=== PATIENT | female | born 2000 | race Caucasian/White ===

== ENCOUNTER 2019-08-08 03:24 | Inpatient (IN) ==
[2019-08-08] MEDS ORDERED: AMPICILLIN 2 GM in NS 100 ML IV ONE (03:50)
[2019-08-08] MEDS ORDERED: KEFZOL 2 GM/D5W 2 GM/50 ML IVPB IV PRN (03:50)
[2019-08-08] MEDS ORDERED: TYLENOL PO PRN (03:50)
[2019-08-08] MEDS ORDERED: STADOL IV PRN (03:50)
[2019-08-08] MEDS ORDERED: PEPCID PO PRN ×2 (03:50)
[2019-08-08] MEDS ORDERED: REGLAN PO PRN (03:50)
[2019-08-08] MEDS ORDERED: ZOFRAN IV PRN (03:50)
[2019-08-08] MEDS ORDERED: PEPCID IV PRN (03:50)
[2019-08-08] MEDS ORDERED: LR 1,000 ML ONE (03:51)
[2019-08-08] MEDS ORDERED: PITOCIN 30 UNITS/NS 30 UNIT/500 ML IV.SOLN ONE (03:51)
[2019-08-08] MEDS ORDERED: XYLOCAINE-MPF 1% INJ PRN ×2 (03:52→05:00)
[2019-08-08] MEDS ORDERED: MINERAL OIL TOP PRN (03:52)
[2019-08-08 04:00] LABS: URINE SOURCE VOIDED
[2019-08-08] MEDS: LR 1,000 ML IV SCH ×2 (04:00→08:05)
[2019-08-08] MEDS ORDERED: PITOCIN 30 UNITS/NS 30 UNIT/500 ML IV.SOLN IV SCH ×2 (04:00→05:00)
[2019-08-08] MEDS ORDERED: SODIUM CHLORIDE 0.9% INJ SCH (04:00)
[2019-08-08 04:06] LABS: BILIRUBIN URINE NEGATIVE (NEGATIVE); BLOOD URINE MODERATE (NEGATIVE); COLOR ORANGE; GLUCOSE URINE 200 mg/dL (NEGATIVE); KETONE URINE NEGATIVE (NEGATIVE); LEUKOCYTES URINE TRACE (NEGATIVE); NITRITE URINE NEGATIVE (NEGATIVE); PROTEIN URINE 100 mg/dL (NEGATIVE); SP GRAVITY URINE 1.006; TURBIDITY URINE TURBID (CLEAR); UROBILINOGEN URINE NORMAL (NORMAL)
[2019-08-08 04:15] LABS: BASO# 0.01 X1000 (0.0-0.2); BASO% 0.1 % (0.0-0.8); EOS# 0.02 X1000 (0.0-0.7); EOS% 0.3 % (0.0-10.0); HEMATOCRIT 31.7 % (37.0-47.0); HEMOGLOBIN 9.9 g/dL (12.0-16.0); IMM GRAN# 0.02 X1000 (0.0-0.04); IMM GRAN% 0.3 % (0.0-0.5); LYMPH# 1.77 X1000 (1.2-3.4); LYMPH% 25.1 % (20.5-51.1); MCH 26.2 PG (27-31); MCHC 31.2 g/dL (33-37); MCV 83.9 FL (81-99); MONO# 0.51 X1000 (0.11-0.59); MONO% 7.2 % (1.7-9.3); MPV 11.3 FL (7.4-10.4); NEUT# 4.71 X1000 (1.4-6.5); PLT 180 X1000 (130-400); RBC 3.78 XMIL (4.2-5.4); RDW 14.9 % (11.5-14.5); WBC 7.04 X1000 (4.8-10.8)
[2019-08-08 04:15] LABS: UR AMPHETAMINES QUAL NONE DETECTED (NONE DETECT); UR BARBITUATES QUAL NONE DETECTED (NONE DETECT); UR BENZODIAZEPIN QUAL NONE DETECTED (NONE DETECT); UR CANNABINOIDS QUAL NONE DETECTED (NONE DETECT); UR COCAINE QUAL NONE DETECTED (NONE DETECT); UR METHADONE QUAL NONE DETECTED (NONE DETECT); UR OPIATES QUAL NONE DETECTED (NONE DETECT); UR OXYCODONE QUAL NONE DETECTED (NONE DETECT); UR PCP QUAL NONE DETECTED (NONE DETECT)
[2019-08-08] MEDS ORDERED: CYTOTEC ONE (04:51)
[2019-08-08] MEDS ORDERED: PITOCIN IM PRN (05:00)
[2019-08-08] MEDS ORDERED: HYDROXYZINE IM PRN (05:00)
[2019-08-08] MEDS ORDERED: PITOCIN 20 UNITS/NS 20 UNITS/1,000 ML IV.SOLN IV SCH (05:00)
[2019-08-08] MEDS ORDERED: PERI MEDS (DERMOPLAST/NUPERCAINAL/TUCKS) MISC PRN (05:00)
[2019-08-08] MEDS ORDERED: ATARAX PO PRN (05:00)
[2019-08-08] MEDS ORDERED: CYTOTEC PO PRN (05:00)
[2019-08-08] MEDS ORDERED: BENADRYL IV PRN (05:00)
[2019-08-08] MEDS ORDERED: M-M-R II VACCINE SUBQ ONE (05:00)
[2019-08-08] MEDS ORDERED: AMBIEN PO PRN (05:00)
[2019-08-08] MEDS ORDERED: BOOSTRIX VACCINE IM ONE (05:00)
[2019-08-08] MEDS ORDERED: MINERAL OIL PO PRN (05:00)
[2019-08-08] MEDS ORDERED: BENADRYL PO PRN (05:00)
[2019-08-08 05:05] LABS: RPR NON-REACTIVE (NONREACTIVE)
[2019-08-08 05:06] LABS: RAPID HIV PRESUMPTIVE NEGATIVE
[2019-08-08 05:11] LABS: RUBELLA SCREEN NON IMMUNE (IMMUNE)
--- NOTE | 2019-08-08 05:17 | HISTORY AND PHYSICAL ---
HISTORY OF PRESENT ILLNESS: The patient is a 19-year-old G2, P1 at approximately 31 weeks based on fundal height in active labor. The patient presents with no care in active labor. She reports rupture of membranes and positive contractions. Good movements. Denies vaginal bleeding. PAST MEDICAL HISTORY: Noncontributory. PAST SURGICAL HISTORY: None. OBSTETRICAL HISTORY: G2, P1, one prior vaginal delivery at approximately 37 weeks. Baby measuring approximately 5 pounds with possible delivery. DEPARTURE CLERK HISTORY: Denies STD exposure. FAMILY HISTORY: Noncontributory. SOCIAL HISTORY: Denies tobacco, alcohol, or drug use. MEDICATIONS: None. ALLERGIES: No known drug allergies. PHYSICAL EXAMINATION: VITAL SIGNS: Temperature 97.8 degrees Fahrenheit, pulse rate 116, respiration rate 18, blood pressure 144/69. 02 sats 99% on room air, weight 120 pounds, and height 5 feet 2 inches tall. Body mass index 21.9 kg per/meter sq. GENERAL: No acute distress. Alert, awake, and oriented x3. CARDIOVASCULAR: Regular rate and rhythm. Positive S1 and S2. RESPIRATORY: Respirations clear to auscultation bilaterally. Negative rhonchi, rales, or wheezing. ABDOMEN: Soft. Nontender to palpation. Gravid. Fundal height 31 cm. EXTREMITIES: No calf tenderness. Negative edema. Vaginal exam 8 to 9 cm dilated, 100% effaced. Grossly ruptured. LABORATORY: WBC 7.04, hemoglobin 9.9, hematocrit 31.7, and platelets 180,000. Urine drug screen negative. ASSESSMENT: Ms. Whyte is a 19-year-old G2, P1 at approximately 31 weeks based on fundal height in active labor and no care. PLAN: 1. Admit to Labor and Delivery. 2. GBS unknown. 3. Ampicillin started for prophylaxis. 4. Continuous monitoring. 5. Storage Battery Charger staff made aware of possible delivery of 31 week. 6. Estimated weight 4 pounds. 7. The patient counseled on risks, benefits, and alternatives. Risks not limited to infection, bleeding, vaginal laceration, and emergency delivery. The patient understands the risks and agrees to the procedure. 8. Anticipate spontaneous vaginal delivery. [facility]
[2019-08-08] MEDS ORDERED: METHERGINE IM ONE (05:50)
[2019-08-08] MEDS ORDERED: METHERGINE ONE (05:50)
--- NOTE | 2019-08-08 06:04 | PROVIDER PROGRESS NOTE ---
- Subjective called for excessive bleeding, patient delivered about an hour ago Physical Exam Objective Vital Signs - 8 hr 08/08/19 03:18 Temperature 97.8 F Pulse Rate 116 H Respiratory Rate 18 Blood Pressure 144/69 O2 Sat by Pulse Oximetry 99 - Constitutional General Appearance: alert, mild distress - EYES Eyes: PERRL/EOMI - HEAD, EARS, NOSE, MOUTH & THROAT HENMT: normocephalic/atraumatic, moist mucous membranes - RESPIRATORY Respiratory: no respiratory distress - CHEST (BREASTS) Chest/Breast: deferred - GASTROINTESTINAL (ABDOMEN) Abdominal Exam: non tender, other (uterus firm, no evident clots vaginally) - NEUROLOGIC Neurologic: grossly normal - PSYCHIATRIC Psych/Mental Status: normal mood/affect, oriented x 3, anxious, tearful Active Medications Generic Name Dose Route Start Last Admin Trade Name Freq PRN Reason Stop Dose Admin Acetaminophen 650 mg 08/08/19 03:50 Tylenol PO Q4-6H PRN PRN Headache Benzocaine 1 each 08/08/19 05:00 08/08/19 05:54 Park Meds (Dermoplast/Nupercainal/Tucks) MISC 1 applic 3-4XDAY PRN PRN Administration episiotomy/hemorrhoids Butorphanol Tartrate 2 mg 08/08/19 03:50 08/08/19 05:08 Stadol IV 2 mg PRN PRN Administration Pain Diphenhydramine HCl 12.5 mg 08/08/19 05:00 Benadryl IV Q4H PRN PRN Itching Diphenhydramine HCl 25 mg 08/08/19 05:00 Benadryl PO Q4H PRN PRN Itching Famotidine 40 mg 08/08/19 03:50 Pepcid PO Q12H PRN PRN GI upset or indigestion Famotidine 20 mg 08/08/19 03:50 Pepcid IV Q12H PRN PRN GI upset or indigestion Famotidine 20 mg 08/08/19 03:50 Pepcid PO ONCE PRN PRN section Ferrous Sulfate 325 mg 08/08/19 09:00 Ferrous Sulfate PO DAILY PAIGE Hydroxyzine HCl 50 mg 08/08/19 05:00 Hydroxyzine IM Q3-4H PRN PRN Nausea Hydroxyzine HCl 50 mg 08/08/19 05:00 Atarax PO Q3-4H PRN PRN Nausea Lactated Ringer's 1,000 mls @ 0 mls/hr 08/08/19 04:00 08/08/19 04:00 Lr IV 125 mls/hr .Q0M PAIGE Administration As Directed Oxytocin/Sodium Chloride 30 unit in 500 mls @ 0 mls/hr 08/08/19 04:00 Pitocin 30 Units/Ns IV .Q0M PAIGE As Directed Cefazolin Sodium/Dextrose 2 gm in 50 mls @ 50 mls/hr 08/08/19 03:50 Kefzol 2 Gm/D5w IV ONCE PRN PRN section Ampicillin Sodium 1 gm/ Sodium 50 mls @ 100 mls/hr 08/08/19 07:51 Chloride IV Q4H PAIGE Oxytocin/Sodium Chloride 20 units in 1,000 mls @ 0 mls/hr 08/08/19 05:00 Pitocin 20 Units/Ns IV .Q0M PAIGE As Directed Oxytocin/Sodium Chloride 30 unit in 500 mls @ 500 mls/hr 08/08/19 05:00 Pitocin 30 Units/Ns IV .Q1H APIGE Ibuprofen 800 mg 08/08/19 05:00 Motrin PO Q8H PRN PRN cramping Lidocaine HCl 30 ml 08/08/19 03:52 Xylocaine-Mpf 1% INJ PRN PRN At bedside for delivery Lidocaine HCl 30 ml 08/08/19 05:00 Xylocaine-Mpf 1% INJ PRN PRN Perineal repair Metoclopramide HCl 10 mg 08/08/19 03:50 Reglan PO ONCE PRN PRN section Mineral Oil 30 ml 08/08/19 03:52 Mineral Oil TOP PRN PRN At bedside for delivery Mineral Oil 30 ml 08/08/19 05:00 Mineral Oil PO PRN PRN Perineal massage Misoprostol 800 microgm 08/08/19 05:00 Cytotec PO PRN PRN Severe bleeding Ondansetron HCl 4 mg 08/08/19 03:50 Zofran IV PRN PRN Nausea Oxycodone/Acetaminophen 1 each 08/08/19 05:00 Percocet-5 PO Q3-4H PRN PRN Pain (1-6 on Pain Scale) Oxytocin 20 unit 08/08/19 05:00 Pitocin IM PRN PRN Severe bleeding Senna/Docusate Sodium 1 each 08/08/19 21:00 Pericolace PO QHS PAIGE Sodium Chloride 5 - 10 ml 08/08/19 04:00 Sodium Chloride 0.9% INJ DIRECTED PAIGE Zolpidem Tartrate 10 mg 08/08/19 05:00 Ambien PO HS PRN PRN Sleep Laboratory Results - last 24 hr 08/08/19 08/08/19 08/08/19 03:35 03:35 04:00 WBC RBC Hgb Hct MCV MCH MCHC RDW Std Deviation Plt Count MPV Immature Gran % (Auto) Neut % (Auto) Lymph % (Auto) [place] % (Auto) Eos % (Auto) Baso % (Auto) Immature Gran # (Auto) Neut # (Auto) Lymph # (Auto) [place] # (Auto) Eos # (Auto) Baso # (Auto) Glucose 97 Urine Source VOIDED Urine Color ORANGE Urine Turbidity TURBID Urine pH 7.0 Ur Specific [place] 1.006 Urine Protein 100 A Ur Glucose (Stick) 200 A Ur Ketones (Stick) NEGATIVE Urine Blood MODERATE A Urine Nitrite NEGATIVE Urine Bilirubin NEGATIVE Urobilinogen Dipstick NORMAL Urine Leukocytes TRACE A Membranes Rupture Urine Opiates Screen NONE DETECTED Ur Oxycodone Screen NONE DETECTED Ur Methadone, Qual NONE DETECTED Ur Barbiturates Screen NONE DETECTED Ur Phencyclidine Scrn NONE DETECTED Ur Amphetamines Screen NONE DETECTED U Benzodiazepines Scrn NONE DETECTED Urine Cocaine Screen NONE DETECTED U Cannabinoids Screen NONE DETECTED RPR HIV 1&2 Antibody Rapid Rubella Immunity Screen Blood Type Antibody Screen 08/08/19 08/08/19 08/08/19 04:00 04:00 04:00 WBC 7.04 RBC 3.78 L Hgb 9.9 L Hct 31.7 L MCV 83.9 MCH 26.2 L MCHC 31.2 L RDW Std Deviation 14.9 H Plt Count 180 MPV 11.3 H Immature Gran % (Auto) 0.3 Neut % (Auto) 67.0 Lymph % (Auto) 25.1 [place] % (Auto) 7.2 Eos % (Auto) 0.3 Baso % (Auto) 0.1 Immature Gran # (Auto) 0.02 Neut # (Auto) 4.71 Lymph # (Auto) 1.77 [place] # (Auto) 0.51 Eos # (Auto) 0.02 Baso # (Auto) 0.01 Glucose Urine Source Urine Color Urine Turbidity Urine pH Ur Specific [place] Urine Protein Ur Glucose (Stick) Ur Ketones (Stick) Urine Blood Urine Nitrite Urine Bilirubin Urobilinogen Dipstick Urine Leukocytes Membranes Rupture Cancelled Urine Opiates Screen Ur Oxycodone Screen Ur Methadone, Qual Ur Barbiturates Screen Ur Phencyclidine Scrn Ur Amphetamines Screen U Benzodiazepines Scrn Urine Cocaine Screen U Cannabinoids Screen RPR NON-REACTIVE HIV 1&2 Antibody Rapid PRESUMPTIVE NEGATIVE Rubella Immunity Screen NON IMMUNE H Blood Type O NEGATIVE Antibody Screen NEGATIVE - Assessment & Plan (1) Uterine atony, , current hospitalization Status: Acute - Progress Note Disposition: Patient given methergine, has had cytotec, has voided, note again uterus below umbilicus and firm Bleeding subsided, follow
[2019-08-08] MEDS ORDERED: DEMEROL IV ONE (06:51)
[2019-08-08] MEDS ORDERED: DEMEROL ONE (06:53)
[2019-08-08] MEDS ORDERED: HEMABATE IM ONE (07:05)
[2019-08-08] MEDS ORDERED: IMODIUM PO PRN (07:08)
--- NOTE | 2019-08-08 07:12 | PROVIDER PROGRESS NOTE ---
- Subjective called for continued bleeding Physical Exam Objective Vital Signs - 8 hr 08/08/19 03:18 08/08/19 03:37 Temperature 97.8 F 97.0 F L Pulse Rate 116 H 97 H Respiratory Rate 18 24 Blood Pressure 144/69 131/78 O2 Sat by Pulse Oximetry 99 100 - Constitutional General Appearance: alert, mild distress - EYES Eyes: PERRL/EOMI - HEAD, EARS, NOSE, MOUTH & THROAT HENMT: normocephalic/atraumatic - RESPIRATORY Respiratory: no respiratory distress - GENITOURINARY Female Genitalia/Pelvic Exam: other (speculum exam revealed intact vagina and cervix, i was told placenta came out intact and uterus is firm, morse placed, and hemabate given at this time) Active Medications Generic Name Dose Route Start Last Admin Trade Name Freq PRN Reason Stop Dose Admin Acetaminophen 650 mg 08/08/19 03:50 Tylenol PO Q4-6H PRN PRN Headache Benzocaine 1 each 08/08/19 05:00 08/08/19 05:54 Park Meds (Dermoplast/Nupercainal/Tucks) MISC 1 applic 3-4XDAY PRN PRN Administration episiotomy/hemorrhoids Butorphanol Tartrate 2 mg 08/08/19 03:50 08/08/19 05:08 Stadol IV 2 mg PRN PRN Administration Pain Diphenhydramine HCl 12.5 mg 08/08/19 05:00 Benadryl IV Q4H PRN PRN Itching Diphenhydramine HCl 25 mg 08/08/19 05:00 Benadryl PO Q4H PRN PRN Itching Famotidine 40 mg 08/08/19 03:50 Pepcid PO Q12H PRN PRN GI upset or indigestion Famotidine 20 mg 08/08/19 03:50 Pepcid IV Q12H PRN PRN GI upset or indigestion Famotidine 20 mg 08/08/19 03:50 Pepcid PO ONCE PRN PRN section Ferrous Sulfate 325 mg 08/08/19 09:00 Ferrous Sulfate PO DAILY PAIGE Hydroxyzine HCl 50 mg 08/08/19 05:00 Hydroxyzine IM Q3-4H PRN PRN Nausea Hydroxyzine HCl 50 mg 08/08/19 05:00 Atarax PO Q3-4H PRN PRN Nausea Lactated Ringer's 1,000 mls @ 0 mls/hr 08/08/19 04:00 08/08/19 04:00 Lr IV 125 mls/hr .Q0M PAIGE Administration As Directed Oxytocin/Sodium Chloride 30 unit in 500 mls @ 0 mls/hr 08/08/19 04:00 Pitocin 30 Units/Ns IV .Q0M PAIGE As Directed Cefazolin Sodium/Dextrose 2 gm in 50 mls @ 50 mls/hr 08/08/19 03:50 Kefzol 2 Gm/D5w IV ONCE PRN PRN section Oxytocin/Sodium Chloride 20 units in 1,000 mls @ 0 mls/hr 08/08/19 05:00 Pitocin 20 Units/Ns IV .Q0M PAIGE As Directed Oxytocin/Sodium Chloride 30 unit in 500 mls @ 500 mls/hr 08/08/19 05:00 Pitocin 30 Units/Ns IV .Q1H PAIGE Ibuprofen 800 mg 08/08/19 05:00 Motrin PO Q8H PRN PRN cramping Lidocaine HCl 30 ml 08/08/19 03:52 Xylocaine-Mpf 1% INJ PRN PRN At bedside for delivery Lidocaine HCl 30 ml 08/08/19 05:00 Xylocaine-Mpf 1% INJ PRN PRN Perineal repair Loperamide HCl 2 mg 08/08/19 07:08 Imodium PO PRN PRN Diarrhea Metoclopramide HCl 10 mg 08/08/19 03:50 Reglan PO ONCE PRN PRN section Mineral Oil 30 ml 08/08/19 03:52 Mineral Oil TOP PRN PRN At bedside for delivery Mineral Oil 30 ml 08/08/19 05:00 Mineral Oil PO PRN PRN Perineal massage Misoprostol 800 microgm 08/08/19 05:00 Cytotec PO PRN PRN Severe bleeding Ondansetron HCl 4 mg 08/08/19 03:50 Zofran IV PRN PRN Nausea Oxycodone/Acetaminophen 1 each 08/08/19 05:00 Percocet-5 PO Q3-4H PRN PRN Pain (1-6 on Pain Scale) Oxytocin 20 unit 08/08/19 05:00 Pitocin IM PRN PRN Severe bleeding Senna/Docusate Sodium 1 each 08/08/19 21:00 Pericolace PO QHS PAIGE Sodium Chloride 5 - 10 ml 08/08/19 04:00 Sodium Chloride 0.9% INJ DIRECTED PAIGE Zolpidem Tartrate 10 mg 08/08/19 05:00 Ambien PO HS PRN PRN Sleep Laboratory Results - last 24 hr 08/08/19 08/08/19 08/08/19 03:35 03:35 04:00 WBC RBC Hgb Hct MCV MCH MCHC RDW Std Deviation Plt Count MPV Immature Gran % (Auto) Neut % (Auto) Lymph % (Auto) [place] % (Auto) Eos % (Auto) Baso % (Auto) Immature Gran # (Auto) Neut # (Auto) Lymph # (Auto) [place] # (Auto) Eos # (Auto) Baso # (Auto) Glucose 97 Urine Source VOIDED Urine Color ORANGE Urine Turbidity TURBID Urine pH 7.0 Ur Specific [place] 1.006 Urine Protein 100 A Ur Glucose (Stick) 200 A Ur Ketones (Stick) NEGATIVE Urine Blood MODERATE A Urine Nitrite NEGATIVE Urine Bilirubin NEGATIVE Urobilinogen Dipstick NORMAL Urine Leukocytes TRACE A Membranes Rupture Urine Opiates Screen NONE DETECTED Ur Oxycodone Screen NONE DETECTED Ur Methadone, Qual NONE DETECTED Ur Barbiturates Screen NONE DETECTED Ur Phencyclidine Scrn NONE DETECTED Ur Amphetamines Screen NONE DETECTED U Benzodiazepines Scrn NONE DETECTED Urine Cocaine Screen NONE DETECTED U Cannabinoids Screen NONE DETECTED RPR HIV 1&2 Antibody Rapid Rubella Immunity Screen Blood Type Blood Type Confirm Antibody Screen 08/08/19 08/08/19 08/08/19 04:00 04:00 04:00 WBC 7.04 RBC 3.78 L Hgb 9.9 L Hct 31.7 L MCV 83.9 MCH 26.2 L MCHC 31.2 L RDW Std Deviation 14.9 H Plt Count 180 MPV 11.3 H Immature Gran % (Auto) 0.3 Neut % (Auto) 67.0 Lymph % (Auto) 25.1 [place] % (Auto) 7.2 Eos % (Auto) 0.3 Baso % (Auto) 0.1 Immature Gran # (Auto) 0.02 Neut # (Auto) 4.71 Lymph # (Auto) 1.77 [place] # (Auto) 0.51 Eos # (Auto) 0.02 Baso # (Auto) 0.01 Glucose Urine Source Urine Color Urine Turbidity Urine pH Ur Specific [place] Urine Protein Ur Glucose (Stick) Ur Ketones (Stick) Urine Blood Urine Nitrite Urine Bilirubin Urobilinogen Dipstick Urine Leukocytes Membranes Rupture Cancelled Urine Opiates Screen Ur Oxycodone Screen Ur Methadone, Qual Ur Barbiturates Screen Ur Phencyclidine Scrn Ur Amphetamines Screen U Benzodiazepines Scrn Urine Cocaine Screen U Cannabinoids Screen RPR NON-REACTIVE HIV 1&2 Antibody Rapid PRESUMPTIVE NEGATIVE Rubella Immunity Screen NON IMMUNE H Blood Type O NEGATIVE Blood Type Confirm Antibody Screen NEGATIVE 08/08/19 05:40 WBC RBC Hgb Hct MCV MCH MCHC RDW Std Deviation Plt Count MPV Immature Gran % (Auto) Neut % (Auto) Lymph % (Auto) [place] % (Auto) Eos % (Auto) Baso % (Auto) Immature Gran # (Auto) Neut # (Auto) Lymph # (Auto) [place] # (Auto) Eos # (Auto) Baso # (Auto) Glucose Urine Source Urine Color Urine Turbidity Urine pH Ur Specific [place] Urine Protein Ur Glucose (Stick) Ur Ketones (Stick) Urine Blood Urine Nitrite Urine Bilirubin Urobilinogen Dipstick Urine Leukocytes Membranes Rupture Urine Opiates Screen Ur Oxycodone Screen Ur Methadone, Qual Ur Barbiturates Screen Ur Phencyclidine Scrn Ur Amphetamines Screen U Benzodiazepines Scrn Urine Cocaine Screen U Cannabinoids Screen RPR HIV 1&2 Antibody Rapid Rubella Immunity Screen Blood Type Blood Type Confirm O NEGATIVE Antibody Screen - Assessment & Plan (1) Uterine atony, , current hospitalization Status: Acute - Progress Note Disposition: If this continues to be a problem will take for D and C, monitor at this time, keep npo for next 4 hours
[2019-08-08] MEDS ORDERED: AMPICILLIN 1 GM in NS 50 ML IV SCH (07:51)
[2019-08-08 09:40] LABS: HIV ANTIBODY SCREEN SEE COMMENTS
[2019-08-08 11:13] LABS: HEPATITIS B SURFACE ANTIGEN SEE COMMENTS
[2019-08-08] MEDS: PERCOCET-5 PO PRN ×2 (14:16→21:36)
[2019-08-08] MEDS: MOTRIN PO PRN ×2 (14:24→21:36)
[2019-08-08] MEDS: FERROUS SULFATE PO SCH (14:24)
--- NOTE | 2019-08-08 14:43 | OPERATIVE NOTE ---
PROCEDURE DATE: 08/08/2019 PROCEDURE PERFORMED: Spontaneous vaginal delivery. SURGEON: Paula Lu MD RECRUITMENT MANAGER: None. DESCRIPTION OF PROCEDURE: The patient delivered a viable female weighing 7 pounds 1 ounce with Apgars of 6, 8 and 9 at 1, 5 and 10 minutes respectively. The vertex was delivered spontaneously over intact perineum. A loose nuchal cord x1 was identified and reduced. The anterior shoulder was delivered atraumatically by maternal expulsive efforts with the assistance of downward traction. The posterior shoulder delivered with maternal expulsive efforts and upward traction. The remainder of the fetus delivered spontaneously. Upon delivery, the was placed on maternal abdomen and assessed by waiting insulator apprentice staff. The cord was then clamped and cut, and cord blood was obtained for blood gas analysis. The placenta delivered spontaneously intact with a three-vessel cord to enhance uterine contractions. IV oxytocin was administered along with 800 mcg of Cytotec per rectum. The cervix, vagina and perineum were inspected for lacerations. No lacerations were identified. Estimated Blood Loss 350 mL. Counts noted to be correct x2.
[2019-08-08] MEDS: PERICOLACE PO SCH (20:18)
[2019-08-09 05:17] LABS: HEMATOCRIT 22.9 % (37.0-47.0); HEMOGLOBIN 6.8 g/dL (12.0-16.0); MCH 25.8 PG (27-31); MCHC 29.7 g/dL (33-37); MCV 86.7 FL (81-99); MPV 11.5 FL (7.4-10.4); RBC 2.64 XMIL (4.2-5.4); RDW 14.9 % (11.5-14.5); WBC 6.23 X1000 (4.8-10.8)
--- NOTE | 2019-08-09 07:39 | OB/GYN PROGRESS NOTE ---
- Subjective 19 yo PPD#1 s/p with PPH, no PNC, Rh negative Patient seen and examined. States vaginal bleeding is bevel face stoner and polisher than a period. She is ambulating and voiding without difficulty. She is tolerating a regular diet. She denies any nausea/vomiting, fever/chills. She denies dizziness/lightheadedness with ambulation. telephone services sales representative has been consulted due to no PNC. Discussed contraception options. She has made an adoption plan for the baby. OB Physical Exam Vital Signs - 8 hr 08/08/19 23:55 08/09/19 05:02 Temperature 98.1 F 97.6 F Pulse Rate 66 65 Respiratory Rate 18 18 Blood Pressure 96/55 96/54 O2 Sat by Pulse Oximetry 100 100 - CONSTITUTIONAL General Appearance: appears well, alert, no apparent distress - EYES Eyes: PERRL/EOMI - HEAD, EARS, NOSE, MOUTH & THROAT HENMT: normocephalic/atraumatic - RESPIRATORY Respiratory: lungs clear, normal breath sounds, no respiratory distress - CARDIOVASCULAR Cardiovascular: normal peripheral pulses, regular rate, rhythm, no edema - GASTROINTESTINAL (ABDOMEN) Abdominal Exam: non tender, soft, other (fundus firm, below umbilicus) - MUSCULOSKELETAL Extremity: normal range of motion, non-tender, normal inspection - NEUROLOGIC Neurologic: grossly normal - PSYCHIATRIC Psych/Mental Status: normal mood/affect Active Medications Generic Name Dose Route Start Last Admin Trade Name Freq PRN Reason Stop Dose Admin Acetaminophen 650 mg 08/08/19 03:50 Tylenol PO Q4-6H PRN PRN Headache Benzocaine 1 each 08/08/19 05:00 08/08/19 05:54 Park Meds (Dermoplast/Nupercainal/Tucks) MISC 1 applic 3-4XDAY PRN PRN Administration episiotomy/hemorrhoids Butorphanol Tartrate 2 mg 08/08/19 03:50 08/08/19 05:08 Stadol IV 2 mg PRN PRN Administration Pain Diphenhydramine HCl 12.5 mg 08/08/19 05:00 Benadryl IV Q4H PRN PRN Itching Diphenhydramine HCl 25 mg 08/08/19 05:00 Benadryl PO Q4H PRN PRN Itching Famotidine 40 mg 08/08/19 03:50 Pepcid PO Q12H PRN PRN GI upset or indigestion Famotidine 20 mg 08/08/19 03:50 Pepcid IV Q12H PRN PRN GI upset or indigestion Famotidine 20 mg 08/08/19 03:50 Pepcid PO ONCE PRN PRN section Ferrous Sulfate 325 mg 08/08/19 09:00 08/08/19 14:24 Ferrous Sulfate PO 325 mg DAILY PAIGE Administration Hydroxyzine HCl 50 mg 08/08/19 05:00 Hydroxyzine IM Q3-4H PRN PRN Nausea Hydroxyzine HCl 50 mg 08/08/19 05:00 Atarax PO Q3-4H PRN PRN Nausea Lactated Ringer's 1,000 mls @ 0 mls/hr 08/08/19 04:00 08/08/19 08:05 Lr IV 125 mls/hr .Q0M PAIGE Administration As Directed Cefazolin Sodium/Dextrose 2 gm in 50 mls @ 50 mls/hr 08/08/19 03:50 Kefzol 2 Gm/D5w IV ONCE PRN PRN section Oxytocin/Sodium Chloride 20 units in 1,000 mls @ 0 mls/hr 08/08/19 05:00 08/08/19 08:50 Pitocin 20 Units/Ns IV 125 mls/hr .Q0M PAIGE Administration As Directed Ibuprofen 800 mg 08/08/19 05:00 08/08/19 21:36 Motrin PO 800 mg Q8H PRN PRN Administration cramping Lidocaine HCl 30 ml 08/08/19 03:52 Xylocaine-Mpf 1% INJ PRN PRN At bedside for delivery Lidocaine HCl 30 ml 08/08/19 05:00 Xylocaine-Mpf 1% INJ PRN PRN Perineal repair Loperamide HCl 2 mg 08/08/19 07:08 Imodium PO PRN PRN Diarrhea Metoclopramide HCl 10 mg 08/08/19 03:50 Reglan PO ONCE PRN PRN section Mineral Oil 30 ml 08/08/19 03:52 Mineral Oil TOP PRN PRN At bedside for delivery Mineral Oil 30 ml 08/08/19 05:00 Mineral Oil PO PRN PRN Perineal massage Misoprostol 800 microgm 08/08/19 05:00 Cytotec PO PRN PRN Severe bleeding Ondansetron HCl 4 mg 08/08/19 03:50 08/08/19 07:35 Zofran IV 4 mg PRN PRN Administration Nausea Oxycodone/Acetaminophen 1 each 08/08/19 05:00 08/08/19 21:36 Percocet-5 PO 1 each Q3-4H PRN PRN Administration Pain (1-6 on Pain Scale) Oxytocin 20 unit 08/08/19 05:00 Pitocin IM PRN PRN Severe bleeding Senna/Docusate Sodium 1 each 08/08/19 21:00 08/08/19 20:18 Pericolace PO 1 each QHS PAIGE Administration Sodium Chloride 5 - 10 ml 08/08/19 04:00 Sodium Chloride 0.9% INJ DIRECTED PAIGE Zolpidem Tartrate 10 mg 08/08/19 05:00 Ambien PO HS PRN PRN Sleep Laboratory Results - last 24 hr 08/08/19 08/08/19 08/08/19 04:00 04:00 05:11 WBC RBC Hgb Hct MCV MCH MCHC RDW Std Deviation Plt Count MPV Hep Bs Antigen SEE COMMENTS HIV 1&2 Antibody Screen SEE COMMENTS ABO/Rh O NEGATIVE RhIG Candidate? YES 08/09/19 05:00 WBC 6.23 RBC 2.64 L Hgb 6.8 L D Hct 22.9 L D MCV 86.7 MCH 25.8 L MCHC 29.7 L RDW Std Deviation 14.9 H Plt Count 154 MPV 11.5 H Hep Bs Antigen HIV 1&2 Antibody Screen ABO/Rh RhIG Candidate? OB Assessment & Plan (1) Status post vaginal delivery Status: Acute Plan: 19 yo PPD#1 s/p with PPH, no PNC, Rh negative 1. HD stable, afebrile. PP Hgb 6.8, vitals WNL and asymptomatic. S/p methergine/hemabate after delivery. 2. Routine PP Care 3. Rhogam candidate 4. Discussed PP contraception options 5. SS consult 6. Adoption plan for infant
[2019-08-09] MEDS: MOTRIN PO PRN ×2 (08:49→17:26)
[2019-08-09] MEDS: FERROUS SULFATE PO SCH (08:49)
[2019-08-09] MEDS: PERCOCET-5 PO PRN ×3 (08:49→21:39)
[2019-08-09] MEDS: PERICOLACE PO SCH (21:38)
[2019-08-10] MEDS: MOTRIN PO PRN ×2 (01:16→09:21)
[2019-08-10 05:40] LABS: BASO# 0.04 X1000 (0.0-0.2); BASO% 0.6 % (0.0-0.8); EOS# 0.05 X1000 (0.0-0.7); EOS% 0.7 % (0.0-10.0); HEMATOCRIT 23.4 % (37.0-47.0); HEMOGLOBIN 6.9 g/dL (12.0-16.0); LYMPH# 2.19 X1000 (1.2-3.4); LYMPH% 32.5 % (20.5-51.1); MCH 25.7 PG (27-31); MCHC 29.5 g/dL (33-37); MONO# 0.49 X1000 (0.11-0.59); MONO% 7.3 % (1.7-9.3); MPV 10.8 FL (7.4-10.4); NEUT# 3.96 X1000 (1.4-6.5); NEUT% 58.9 % (42.2-75.2); PLT 172 X1000 (130-400); RBC 2.69 XMIL (4.2-5.4); RDW 14.9 % (11.5-14.5); WBC 6.73 X1000 (4.8-10.8)
[2019-08-10 07:20] VITALS: BP 109/65
[2019-08-10] MEDS: FERROUS SULFATE PO SCH (09:12)
== END 2019-08-10 13:21 | disposition home or self-care (01) | DRG 807 ==
LOC: OPLD 03:24 → EDSTATUS 03:24 → LD 03:33
PROVIDERS: ADMIT Obstetrics & Gynecology; ATTEND Obstetrics & Gynecology